=== PATIENT | female | born 1985 | race Two or more races ===

== ENCOUNTER 2020-01-18 12:40 | Observation (INO) | payer MEDICAID ==
[2020-01-18] MEDS ORDERED: Albuterol/Ipratropium NEB.SOL* (2.5/0.5 MG) 3 ML NEB.SOLN INH ONE ×3 (12:46→13:26)
[2020-01-18] MEDS ORDERED: Acetaminophen TAB* 325 MG PO ONE ×2 (13:22)
[2020-01-18 13:53] LABS: ABS Monocytes 0.3 10^3/ul (0-0.8); Hematocrit 41 % (35-47); Hemoglobin 13.9 g/dL (12.0-16.0); Mean Corpuscular HGB Conc 34 g/dL (31-36); Mean Corpuscular Hemoglobin 34 pg (27-31); Mean Corpuscular Volume 100 fL (80-97); Mean Platelet Volume 7.1 fL (7.4-10.4); Nucleated Red Blood Cells % 0.1; Platelet Count 165 10^3/uL (150-450); Red Blood Count 4.07 10^6 /uL (3.70-4.87); Red Cell Distribution Width 14 % (10-15); White Blood Count 7.4 10^3/uL (3.5-10.8)
[2020-01-18 14:45] LABS: Albumin 4.4 g/dL (3.2-5.2); Calcium 9.1 mg/dL (8.6-10.3); Potassium 3.2 mmol/L (3.5-5.0); Total Bilirubin 0.5 mg/dL (0.2-1.0)
[2020-01-18 14:50] LABS: Albumin/Globulin Ratio 1.2 (1-3); BUN/Creatinine Ratio 9.7 (8-20); C Reactive Protein 109.68 mg/L (<8.01); EGFR African American 134.1 (>60); EGFR Non-African American 110.9 (>60); Globulin 3.8 g/dL (2-4); Total Protein 8.2 g/dL (6.4-8.9)
--- NOTE | 2020-01-18 15:29 | ED ---
Respiratory - HPI Summary HPI Summary: This patient is a 34-year-old female who is otherwise healthy presenting to the ED with acute onset shortness of breath since this morning. She tested positive for cocaine yesterday. She has no significant past medical history, denies history of COPD or asthma. Denies smoking history. The other 2 family members in her household have also diagnosed positive with Covid. She states they are currently not having any shortness of breath, only fevers. She has had fevers at home, controlled well with Tylenol. She feels since upon awakening this morning, her SOB has gradually worsened. Patient states she and her family members have not been out of her house for at least 3 weeks. - History of Current Complaint Chief Complaint: EDShortnessOfBreath Stated Complaint: GENERAL ILLNESS Time Seen by Provider: 01/18/20 12:42 Hx Obtained From: Patient Timing: Constant Initial Severity: Moderate Current Severity: Moderate Pain Intensity: 3 Sputum Amount: None Aggravating Factor(s): Nothing Associated Signs and Symptoms: Negative - Risk Factors Status Asthmaticus Risk Factors: Negative Pulmonary Embolism Risk Factors: Negative Cardiac Risk Factors: Negative Pseudomonas Risk Factors: Negative - Allergy/Home Medications Allergies/Adverse Reactions: Allergies Allergy/AdvReac Type Severity Reaction Status Date / Time No Known Allergies Allergy Unknown Verified 01/18/20 14:13 Reaction Details Home Medications: Home Medications NK [No Home Medications Reported] 01/18/20 [History Confirmed 01/18/20] PMH/Surg Hx/FS Hx/Imm Hx Previously Healthy: Yes - Immunization History Hx Pertussis Vaccination: No Immunizations Up to Date: Yes Infectious Disease History: No Infectious Disease History: Denies: Traveled Outside the [place] in Last 30 Days - Social History Occupation: Employed Full-time Lives: With Family Alcohol Use: None Hx Substance Use: No Substance Use Type: Reports: None Smoking Status (MU): Never Smoked Tobacco Review of Systems Positive: Fever, Skin Diaphoresis. Negative: Chills, Fatigue Negative: Palpitations, Chest Pain Positive: Shortness Of Breath, Cough Genitourinary: Negative Positive: no symptoms reported, see HPI Negative: Arthralgia, Myalgia Skin: Negative All Other Systems Reviewed And Are Negative: Yes Physical Exam Triage Information Reviewed: Yes Vital Signs On Initial Exam: Initial Vitals Pulse Resp BP Pulse Ox 103 25 134/83 99 01/18/20 13:35 01/18/20 13:35 01/18/20 13:35 01/18/20 13:35 Vital Signs Reviewed: Yes Appearance: Positive: Well-Appearing, Well-Nourished Skin: Positive: Warm, Skin Color Reflects Adequate Perfusion Head/Face: Positive: Normal Head/Face Inspection Eyes: Positive: EOMI, JOHN, Conjunctiva Clear Neck: Positive: Supple, Nontender, No Lymphadenopathy Respiratory/Lung Sounds: Positive: Other - rattling worse to the R base Cardiovascular: Positive: RRR, Pulses are Symmetrical in both Upper and Lower Extremities Musculoskeletal: Positive: Strength/ROM Intact Neurological: Positive: Alert, Oriented to Person Place, Time Psychiatric: Positive: Affect/Mood Appropriate AVPU Assessment: Alert Procedures - Sedation Patient Received Moderate/Deep Sedation with Procedure: No Diagnostics - Vital Signs Vital Signs Temp Pulse Resp BP Pulse Ox 01/18/20 14:35 113 62 136/75 92 01/18/20 14:05 101 30 132/87 93 01/18/20 14:00 104 15 95 01/18/20 13:56 102 14 99 01/18/20 13:40 100.1 F 101 30 134/83 95 01/18/20 13:35 103 25 134/83 99 - Laboratory Lab Results: Lab Results 01/18/20 01/18/20 01/18/20 Range/Units 13:30 13:30 13:30 WBC 7.4 (3.5-10.8) 10^3/uL RBC 4.07 (3.70-4.87) 10^6 /uL Hgb 13.9 (12.0-16.0) g/dL Hct 41 (35-47) % MCV 100 H (80-97) fL MCH 34 H (27-31) pg MCHC 34 (31-36) g/dL RDW 14 (10-15) % Plt Count 165 (150-450) 10^3/uL MPV 7.1 L (7.4-10.4) fL Neut % (Auto) 81.8 % Lymph % (Auto) 14.0 % [place] % (Auto) 4.1 % Eos % (Auto) 0.0 % Baso % (Auto) 0.1 % Absolute Neuts (auto) 6.0 (1.5-7.7) 10^3/ul Absolute Lymphs (auto) 1.0 (1.0-4.8) 10^3/ul Absolute Monos (auto) 0.3 (0-0.8) 10^3/ul Absolute Eos (auto) 0.0 (0-0.6) 10^3/ul Absolute Basos (auto) 0.0 (0-0.2) 10^3/ul Absolute Nucleated RBC 0.0 10^3/ul Nucleated RBC % 0.1 Sodium 136 (135-145) mmol/L Potassium 3.2 L (3.5-5.0) mmol/L Chloride 101 (101-111) mmol/L Carbon Dioxide 24 (22-32) mmol/L Anion Gap 11 (2-11) mmol/L BUN 6 (6-24) mg/dL Creatinine 0.62 (0.51-0.95) mg/dL Est GFR ( Amer) 134.1 (>60) Est GFR (Non-Af Amer) 110.9 (>60) BUN/Creatinine Ratio 9.7 (8-20) Glucose 102 H (70-100) mg/dL Lactic Acid 1.1 (0.5-2.0) mmol/L Calcium 9.1 (8.6-10.3) mg/dL Total Bilirubin 0.50 (0.2-1.0) mg/dL AST 79 H (13-39) U/L ALT 116 H (7-52) U/L Alkaline Phosphatase 104 (34-104) U/L C-Reactive Protein 109.68 H (<8.01) mg/L Total Protein 8.2 (6.4-8.9) g/dL Albumin 4.4 (3.2-5.2) g/dL Globulin 3.8 (2-4) g/dL Albumin/Globulin Ratio 1.2 (1-3) Result Diagrams: 01/18/20 13:30 01/18/20 13:30 Lab Statement: Any lab studies that have been ordered have been reviewed, and results considered in the medical decision making process. Disposition - Course Course Of Treatment: This patient is evaluated for shortness of breath associated with Covid. Through polisher brass, history of present illness was obtained. No past medical history significant. Sat between 92 and 96% on room air. Patient does appear to be ill and seems to try to be catching her breath and taking deep breaths. Labs obtained which show a normal white count however an elevated CRP. A CXR is consistent with bilateral pneumonia. Discussed with hospitalist to admit the patient at this time. Dx with COVID, PNA, SOB. - Differential Dx - Cardiopulmonary Differential Diagnoses - Cardiopulmonary: Other - pna, sob, hypoxia - Diagnoses Provider Diagnoses: COVID-19 - Critical Care Time Critical Care Statement: Critical care time is provided exclusive of any time spent performing procedures. Discharge ED - Sign-Out/Discharge Documenting (check all that apply): Patient Departure All imaging exams completed and their final reports reviewed: No - Discharge Plan Condition: Fair Disposition: ADMITTED TO [facility] - Billing Disposition and Condition Condition: FAIR Disposition: Admitted to [facility]
[2020-01-18] MEDS ORDERED: Acetaminophen TAB* 325 MG PO PRN (16:24)
[2020-01-18] MEDS ORDERED: Ondansetron INJ* 2 MG/ML VIAL IV PRN (16:24)
[2020-01-18] MEDS ORDERED: Albuterol HFA INHALER* 8 gm MDI INH PRN (16:35)
[2020-01-18] MEDS ORDERED: Potassium Chloride* LIQUID 20 MEQ/15 ML UDC PO ONE (16:38)
[2020-01-18] MEDS: Enoxaparin(*) 40 MG/0.4 ML SYR SUBCUT SCH (16:55)
--- NOTE | 2020-01-18 18:45 | HP ---
CC: Dr. Raquel Thomas* ADMISSION HISTORY AND PHYSICAL: DATE OF ADMISSION: 01/18/20 PRIMARY CARE PROVIDER: None. MY ATTENDING WHILE IN THE HOSPITAL: Dr. Raquel Thomas* (dictated by BERKLEY Matthews). CHIEF COMPLAINT: Cough x8 days, hemoptysis x1 day. HISTORY OF PRESENT ILLNESS: Ms. Benito is a 34-year-old female with no significant past medical history who presents to the emergency department after 8 days ago she had a cough which has been getting worse with accompanied subjective fevers and chills. The patient's and son as well as her, all recently tested positive for COVID-19 through the [facility] Department and have been quarantining themselves. The patient overnight became disturbed because her cough became more productive and produced some blood in her sputum, not a large amount and not consistently. The patient has also had increased shortness of breath. The patient has been healthy up until this point. The patient was brought to the emergency department by the health department. In the emergency department, the patient was found to have borderline low oxygen saturations, tachycardia, and elevated temperature at 100.1. The patient feels poorly, and due to concern for a COVID positive patient with low oxygen saturation for her age, we were asked to evaluate the patient for admission to the hospital. Of note, this history and physical was obtained through a molecular pathologist juany as the patient speaks only Azeri. PAST MEDICAL HISTORY: None. PAST SURGICAL HISTORY: x2. MEDICATIONS: None. ALLERGIES: None. FAMILY HISTORY: Both the patient's parents are alive. The patient does not know grandparental history. The patient has 2 siblings, who live in [place] and have no health problems that are known. SOCIAL HISTORY: The patient has never smoked, drank, or used illicit drugs. The patient lives at home with her son and her , works. The patient recently immigrated from [place] [facility] [place] [facility] [place] [facility] [place]. The patient has 2 additional children in [place]. The patient's surrogate decision maker will be her sister, Trupti Samuel. REVIEW OF SYSTEMS: A 10-point review of systems was reviewed with the patient and is negative except as above in the HPI. PHYSICAL EXAMINATION GENERAL: The patient is a 34-year-old female, who appears stated age and sitting in bed with increased work of breathing. VITAL SIGNS: Temperature 100.1, pulse rate 114, respiratory rate , oxygen saturation 90% to 94% on room air, blood pressure 136/75. HEENT: Head is normocephalic, atraumatic. Sclerae anicteric. No conjunctival injection. Nasal mucosa moist. Oral mucosa moist. No pharyngeal erythema, discharge, or exudate. NECK: Supple, nontender. No lymphadenopathy. No carotid bruits auscultated. No JVD. RESPIRATORY: Rales head in bilateral lower lobes. No adventitious lung sounds. Good air exchange bilaterally. CARDIAC: Tachycardic. No clicks, murmurs, gallops, or rubs. Pulses 2+ in bilateral dorsalis pedis, posterior tibialis, and radial areas. ABDOMEN: Soft, nontender, and nondistended. Bowel sounds present, normoactive in all 4 quadrants. No hepatosplenomegaly. No abdominal bruits auscultated. No hepatojugular reflux. GENITOURINARY: No suprapubic or CVA tenderness. NEUROLOGIC: Cranial nerves II through XII intact. No focal deficits. Alert and oriented x3. PSYCHIATRIC: Pleasant and cooperative. SKIN: Clean, dry, and intact. No rashes. LABORATORY DATA: White blood cell count 7.4, hemoglobin 13.9, platelet count 165. Sodium 136, potassium 3.2, chloride 101, carbon dioxide 24, anion gap 11, BUN 6, creatinine 0.62, glucose 102, lactic acid 1.1, calcium 9.1. Bilirubin 0.5, AST 79, ALT 116, alkaline phosphatase 104. CRP 109.68. Albumin 4.4, globulin 3.8, total protein 8.2. STUDIES: Chest x-ray read as constellation of findings consistent with bilateral pneumonia. ASSESSMENT AND PLAN: Impression: Ms. Benito is a 34-year-old female with no significant past medical history, whose entire family was recently diagnosed with COVID-19, who has had a cough for 8 days and is currently getting worse with increased shortness of breath and hemoptysis with borderline oxygen saturations while in the emergency department. She will be admitted to the hospital for close observation for decompensation and possibly for oxygen supplementation. 1. COVID-19 pneumonia. The patient has classic syndrome for COVID-19 pneumonia and tested positive through the [facility] Department. This was confirmed with the health department. The patient will be started on _ ____hydroxychloroquine protocol at 400 twice daily and then 400 daily. The patient does not have any subjective fevers or chills and had an elevated temperature here in the hospital. The patient is tachycardic likely related to her fever. The patient has borderline low oxygen saturations, but is not needing oxygen at this time. The patient's oxygen goal should be 93% generally. There is no indication of bacterial superinfection and the patient will not be treated for that at this time. There is very little concern for pulmonary embolism and D-dimer will not be ordered at this time. 2. Transaminitis. This is likely related to coronavirus. 3. DVT prophylaxis. The patient is a low risk; however, given evidence of thrombosis with coronavirus infection, the patient will be started on Lovenox subcutaneous at 40 mg daily. 4. FEN. The patient will have a regular, unrestricted diet. Fluids are not indicated at this time. 5. Disposition. The patient admitted on observation in the hospital. TIME SPENT: Approximately 45 minutes was spent on admission of this patient, 30 of which is spent [id number] with the patient obtaining history and physical and discussing treatment plan. BERKLEY MATTHEWS [id number]/[facility] #: [id number] SHYAM
[2020-01-18] MEDS: Hydroxychloroquine TAB* 200 MG PO SCH (21:21)
[2020-01-19] MEDS ORDERED: Albuterol HFA INHALER* 8 gm MDI INH ONE (03:15)
[2020-01-19] MEDS ORDERED: Albuterol HFA INHALER* 8 gm MDI INH PRN (03:15)
[2020-01-19] MEDS: Hydroxychloroquine TAB* 200 MG PO SCH (09:09)
[2020-01-19] MEDS: Enoxaparin(*) 40 MG/0.4 ML SYR SUBCUT SCH (17:50)
--- NOTE | 2020-01-19 18:16 | PN ---
Subjective Date of Service: 01/19/20 Interval History: Used iPad product development assistant juany during interview and exam. Pt had significant cough when I entered her room which shortly subsided. Did not cough anything up. States that her breathing has gotten better, during interview denied feeling SOB , CP, abdominal discomfort, BOOTHE, fever. Spoke to pt about her oxygen requirement and staying in the hospital for another night of observation. She lives with her and son who also tested positive for COVID19, she states that they are doing well. Objective Active Medications: Acetaminophen (Tylenol Tab*) 975 mg PO Q8H PRN PRN Reason: MILD PAIN or TEMP > 100.4 Albuterol (Ventolin Hfa Inhaler*) 2 puff INH Q2H PRN PRN Reason: SOB/WHEEZING Enoxaparin Sodium (Lovenox(*)) 40 mg SUBCUT Q24H HILTON Last Admin: 01/19/20 17:50 Dose: 40 mg Hydroxychloroquine Sulfate (Plaquenil Tab*) 400 mg PO BEDTIME HILTON Stop: 01/22/20 21:01 Ondansetron HCl (Zofran Inj*) 4 mg IV Q6H PRN PRN Reason: NAUSEA Vital Signs - 8 hr 01/19/20 01/19/20 11:15 15:15 Temperature 98.3 F 97.8 F Pulse Rate 105 99 Respiratory 16 16 Rate Blood Pressure 128/76 123/66 (mmHg) O2 Sat by Pulse 95 97 Oximetry Oxygen Devices in Use Now: Nasal Cannula Appearance: laying in bed, after coughing fit NAD Eyes: No Scleral Icterus Ears/Nose/Mouth/Throat: Clear Oropharnyx Respiratory: Symmetrical Chest Expansion and Respiratory Effort, Clear to Auscultation Cardiovascular: RRR - fast Abdominal: NL Sounds; No Tenderness; No Distention Extremities: No Edema Skin: No Rash or Ulcers Neurological: Alert and Oriented x 3 Nutrition: Taking PO's Result Diagrams: 01/18/20 13:30 01/18/20 13:30 Additional Lab and Data: Lab Results 01/18/20 01/18/20 01/18/20 Range/Units 13:30 13:30 13:30 WBC 7.4 (3.5-10.8) 10^3/uL RBC 4.07 (3.70-4.87) 10^6 /uL Hgb 13.9 (12.0-16.0) g/dL Hct 41 (35-47) % MCV 100 H (80-97) fL MCH 34 H (27-31) pg MCHC 34 (31-36) g/dL RDW 14 (10-15) % Plt Count 165 (150-450) 10^3/uL MPV 7.1 L (7.4-10.4) fL Neut % (Auto) 81.8 % Lymph % (Auto) 14.0 % [place] % (Auto) 4.1 % Eos % (Auto) 0.0 % Baso % (Auto) 0.1 % Absolute Neuts (auto) 6.0 (1.5-7.7) 10^3/ul Absolute Lymphs (auto) 1.0 (1.0-4.8) 10^3/ul Absolute Monos (auto) 0.3 (0-0.8) 10^3/ul Absolute Eos (auto) 0.0 (0-0.6) 10^3/ul Absolute Basos (auto) 0.0 (0-0.2) 10^3/ul Absolute Nucleated RBC 0.0 10^3/ul Nucleated RBC % 0.1 Sodium 136 (135-145) mmol/L Potassium 3.2 L (3.5-5.0) mmol/L Chloride 101 (101-111) mmol/L Carbon Dioxide 24 (22-32) mmol/L Anion Gap 11 (2-11) mmol/L BUN 6 (6-24) mg/dL Creatinine 0.62 (0.51-0.95) mg/dL Est GFR ( Amer) 134.1 (>60) Est GFR (Non-Af Amer) 110.9 (>60) BUN/Creatinine Ratio 9.7 (8-20) Glucose 102 H (70-100) mg/dL Lactic Acid 1.1 (0.5-2.0) mmol/L Calcium 9.1 (8.6-10.3) mg/dL Total Bilirubin 0.50 (0.2-1.0) mg/dL AST 79 H (13-39) U/L ALT 116 H (7-52) U/L Alkaline Phosphatase 104 (34-104) U/L C-Reactive Protein 109.68 H (<8.01) mg/L Total Protein 8.2 (6.4-8.9) g/dL Albumin 4.4 (3.2-5.2) g/dL Globulin 3.8 (2-4) g/dL Albumin/Globulin Ratio 1.2 (1-3) Microbiology and Other Data: Microbiology 01/18/20 14:10 Aerobic Blood Culture - Preliminary Blood Venous No Growth Day 1 Anaerobic Blood Culture - Preliminary No Growth Day 1 01/18/20 13:30 Aerobic Blood Culture - Preliminary Blood Venous No Growth Day 1 Anaerobic Blood Culture - Preliminary No Growth Day 1 Assess/Plan/Problems-Billing Assessment: 34 yo female with no significant PMHx. Lives with family who has also tested + for COVID19. Confirmed her Dx with health dept. - Patient Problems (1) Pneumonia due to COVID-19 virus Current Visit: Yes Status: Acute Code(s): U07.1 - 2019-nCoV acute respiratory disease; J12.89 - OTHER VIRAL PNEUMONIA SNOMED Code(s): 932531419 Comment: Constellation of findings given the clinical context is consistent with bilateral pneumonia per CXR COVID + test confirmed with local Health Department Tachycardia likely related to response to infection No reason to assume bacterial infection at this time Is still on 2L O2 and maintaining O2 SATs in the high 90s, this has been discussed with nursing and will attempt to titrate down on O2 Continue hydroxychloroquine (2) Transaminitis Current Visit: Yes Status: Acute Code(s): R74.0 - NONSPEC ELEV OF LEVELS OF TRANSAMNS & LACTIC ACID DEHYDRGNSE SNOMED Code(s): 486159160 Comment: May be elevated in the setting of acute infection Should follow up with her PCP as an outpt (3) DVT prophylaxis Current Visit: Yes Status: Acute Code(s): Z29.9 - ENCOUNTER FOR PROPHYLACTIC MEASURES, UNSPECIFIED SNOMED Code(s): 273707021 Comment: as reports are showing higher coagulation risk with COVID19 she has been placed on lovenox sq Continue lovenox sq (4) Full code status Current Visit: Yes Status: Acute Code(s): Z78.9 - OTHER SPECIFIED HEALTH STATUS SNOMED Code(s): 475592200 Attending: Angelique Tolentino
[2020-01-19 20:32] LABS: ABS Lymphocytes 1.4 10^3/ul (1.0-4.8); ABS Monocytes 0.4 10^3/ul (0-0.8); ABS Neutrophils 4.2 10^3/ul (1.5-7.7); Hematocrit 40 % (35-47); Hemoglobin 13.9 g/dL (12.0-16.0); Lymphocyte % 22.8 %; Mean Corpuscular HGB Conc 35 g/dL (31-36); Mean Corpuscular Hemoglobin 34 pg (27-31); Mean Corpuscular Volume 99 fL (80-97); Mean Platelet Volume 7.2 fL (7.4-10.4); Platelet Count 179 10^3/uL (150-450); Red Blood Count 4.03 10^6 /uL (3.70-4.87); Red Cell Distribution Width 13 % (10-15)
[2020-01-19 20:50] LABS: BUN/Creatinine Ratio 9.3 (8-20); C Reactive Protein 87.21 mg/L (<8.01); Calcium 9.6 mg/dL (8.6-10.3); EGFR African American 107.7 (>60); Potassium 3.7 mmol/L (3.5-5.0)
[2020-01-19] MEDS ORDERED: Hydroxychloroquine TAB* 200 MG PO SCH (21:00)
[2020-01-20 06:53] LABS: ABS Lymphocytes 1.6 10^3/ul (1.0-4.8); ABS Monocytes 0.3 10^3/ul (0-0.8); ABS Neutrophils 2.3 10^3/ul (1.5-7.7); Eosinophil % 0.1 %; Hematocrit 38 % (35-47); Hemoglobin 13.3 g/dL (12.0-16.0); Lymphocyte % 37.8 %; Mean Corpuscular HGB Conc 35 g/dL (31-36); Mean Corpuscular Hemoglobin 35 pg (27-31); Mean Corpuscular Volume 99 fL (80-97); Mean Platelet Volume 7.3 fL (7.4-10.4); Platelet Count 166 10^3/uL (150-450); Red Cell Distribution Width 14 % (10-15); White Blood Count 4.3 10^3/uL (3.5-10.8)
[2020-01-20 07:11] LABS: BUN/Creatinine Ratio 12.1 (8-20); Calcium 9.3 mg/dL (8.6-10.3); EGFR African American 124.8 (>60); EGFR Non-African American 103.1 (>60); Potassium 3.6 mmol/L (3.5-5.0)
[2020-01-20 13:52] VITALS: BP 114/80
--- NOTE | 2020-01-21 02:25 | DS ---
DISCHARGE SUMMARY: DATE OF ADMISSION: 01/18/20 DATE OF DISCHARGE: 01/20/20 ATTENDING PHYSICIAN: Dr. Tolentino* (dictated by Colby Sahni NP). PRIMARY CARE PHYSICIAN: The patient has no PCP, has been set up with [facility]. PRIMARY DIAGNOSIS: Pneumonia secondary to COVID-19. SECONDARY DIAGNOSIS: Transaminitis. HISTORY OF PRESENT ILLNESS AND HOSPITAL COURSE: Ms. Benito is a 34-year-old female with no significant past medical history. She is Guamanian speaking only. She presented to emergency department on 01/18/20 with a chief complaint of cough x8 days and hemoptysis x1 day. She did complain of subjective fevers and chills. The patient as well as her son and all tested positive for COVID -19. Her test was confirmed through the [facility] Department. She has been quarantining herself. The patient was concerned because her cough became more productive and noticed some blood in her sputum. She was also having increased shortness of breath. She otherwise has been healthy up until this point. In the emergency department, she was noted to have borderline low O2 sat, tachycardia, and elevated temperature of 100.1. She was not feeling well. It was very reasonable given her presentation and relation to COVID- positive status to admit her. The patient was started on hydroxychloroquine. The response was with the low oxygen and tachycardia was all likely in relation COVID specific. There was very little suspicion for PE or other complication. Chest x-ray did read as constellation of findings consistent with bilateral pneumonia. The patient remained on oxygen for the majority of 01/19/20. She was feeling a little bit better, still with significant cough; however, she was not complaining of feeling short of breath anymore at that point. Given the fact that she was still on oxygen, it was very reasonable to keep her another day. The patient was amenable to this. The patient was seen this morning, looking well, not acutely ill. Denying any shortness of breath, believed that her cough is getting better, states that she was feeling well and was ready to home. She was maintaining 93% O2 sat on room air while walking and 95% while resting. The patient also denies headache, chest pain, abdominal discomfort, new numbness, tingling or weakness, difficulty with bladder or bowel. The patient was acceptable for discharge this morning. As the patient is Guamanian speaking only, professor of latin american studies via the [employer] professor of latin american studies juany was used for all communications. STUDIES: Chest x-ray, impression states the constellation of findings given the clinical context was consistent with bilateral pneumonia. PERTINENT LABORATORY DATA: The patient's CBCs have remained rather stable. She has had high MCV of 199 and 99, high MCH of 34, 34, and 35 and low MPV of 7.1, 7.2 and 7.3; otherwise unremarkable. However, it is noted that the patient 's white blood cell count slowly trending down, originally 7.4 and now 4.3. No significant change in platelet count. I did speak to her about the significance that this could have on her health and what she should watch for. Chemistries essentially unremarkable. The patient did have a potassium low on arrival 3.2. This was repleted. She was 3.7 yesterday and 3.6 today. She did have elevated glucose levels in the low to mid 100s. She was noted with transaminitis, AST 79, ALT 116, alk phosphatase was 104, CRP 109.68 on arrival, 87.21 the next day. Other values from liver panel, total bilirubin 0.50, total protein 8.2, albumin 4.4, globulin 3.8, albumin globulin ratio 1.2. REVIEW OF SYSTEMS: A 10-point review of systems was completed with this patient. Please see HPI for all pertinent positives and negatives. PHYSICAL EXAM: The patient is sitting up at bedside, appears well, in no acute distress. Last vital signs, temp 97.5, heart rate 102, respiratory rate 20, O2 sat 93% on room air, blood pressure 114/80. HEENT: Clear oropharynx. Mucous membranes moist. Cardiovascular: Heart rate regular, S1, S2 present. No murmurs, rubs, or gallops noted. Respiratory: Lung sounds clear throughout but slightly diminished. Normal respiratory effort. No cough noted. GI: Hypoactive bowel sounds throughout. Abdomen: Soft, nontender. Skin appears dry and intact. Neuro: Alert and oriented x3. DISCHARGE PLAN: The patient can continue with healthy diet, low in sugars and unhealthy fats. No equipment necessary for discharge. Increase activity level as tolerated. PROBLEM LIST: 1. Pneumonia secondary to COVID-19. The patient will continue with hydroxychloroquine. She has been set up with PCP. They are supposed to call her on Wednesday. She should follow up with them within 1 week or so. 2. Transaminitis. Again, the patient can follow up about this as an outpatient with her PCP once she finds one. MEDICATIONS AT DISCHARGE: Hydroxychloroquine 400 mg p.o. at bedtime x3 days. RETURN PRECAUTIONS: The patient should return to emergency department if she begins to feel the way that she did prior to coming in, if she continues to have cough up blood, if she feels unusually short of breath, if she develops chest pain. Information about COVID-19 as well as specifics about discharge instruction were given to the patient in Guamanian. CONDITION AT DISCHARGE: Stable. DISPOSITION: Home. TIME SPENT: Approximately 45 minutes was spent on this discharge. This plan was discussed with my attending physician, Dr. Tolentino, and she agrees with this plan. COLBY SAHNI NP [id number]/[facility] #: [id number] SHYAM
== END 2020-01-20 16:58 | disposition home or self-care (01) ==
LOC: ED 12:40 → MED 17:38
PROVIDERS: ADMIT Internal Medicine; ATTEND Internal Medicine
DX: U07.1 COVID-19 (principal); J12.89 Other viral pneumonia; R06.02 Shortness of breath; R04.2 Hemoptysis; R74.0 Nonspecific elevation of levels of transaminase and lactic acid dehydrogenase [LDH]; Z79.899 Other long term (current) drug therapy
CPT/HCPCS: 36415; 71045; 80048; 80053; 83605; 85025; 86140; 87040; 96372; 99284; A9270-GY; G0378; J1650; J7620